=== PATIENT | female | born 1965 ===

== ENCOUNTER 2025-06-10 08:57 | Emergency (ER) | payer MEDICAID, SELFPAY ==
[2025-06-10 09:01] VITALS: BP 161/77; PULSE 69; RESP 18; TEMP 36.3; O2SAT 97; BMI 40.9
--- NOTE | 2025-06-10 09:36 | ED_ITS ---
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 Patient states that she has had a growth on her back for quite a long time but over the last few days it has gotten bigger and painful. Patient states that it has been growing and won't open. Patient denies any dizziness, lightheadedness, abdominal pain, nausea, vomiting, fever, chills, blurry vision, double vision, loss of vision, chest pain, difficulty breathing, shortness of breath, back pain, night sweats, pain with urination, increased urinary frequency, increased urinary urgency, blood in her urine or stool, syncope or a near syncopal episode, recent trauma or falls, bowel incontinence, bladder incontinence, or any other complaints at this time. Relieving factors: none Exacerbating factors: none Associated symptoms: denies other symptoms Treatments prior to arrival: none Related Data Previous Rx's ?Medication ?Instructions ?Recorded cephalexin 500 mg capsule 500 mg PO Q6H 7 days #28 cap s 06/10/25 Allergies Allergy/AdvReac Type Severity Reaction Status Date / Time No Known Allergies Allergy Verified 06/10/25 09:09 Review of Systems 2 Constitutional: Constitutional: Reports no additional constitutional complaints, Denies chills, Denies fever(s) and Denies night sweats Eyes: Eyes: Reports no additional eye complaints, Denies blurry vision, Denies change in vision, Denies diplopia, Denies eye discharge, Denies loss of vision and Denies eye pain ENT: Denies dizziness Cardiovascular: Cardiovascular: Reports no additional cardiovascular complaints, Denies chest pain, Denies lightheadedness, Denies Loss of Consciousness and Denies dyspnea Respiratory: Respiratory: Reports no additional respiratory complaints and Denies dyspnea Gastrointestinal: Gastrointestinal: Reports no additional gastrointestinal complaints, Denies abdominal pain, Denies melena, Denies hematochezia, Denies change in bowel habits and Denies change in stool character Genitourinary: Genitourinary: Denies hematuria, Denies urinary frequency, Denies dysuria, Denies urinary incontinence, Denies urinary hesitancy and Denies urinary urgency Musculoskeletal: Musculoskeletal: Reports no additional musculoskeletal complaints, Denies numbness and Denies tingling Comments: right sided back mass Neurologic: Denies dizziness, Denies loss of vision, Denies numbness and Denies tingling Psychiatric: Psychiatric: Reports no additional psychiatric complaints Endocrine: Endocrine: Reports no additional endocrine complaints Hematologic/Lymphatic: Hematologic/Lymphatic: Reports no additional hematologic/lymphatic complaints Allergic/Immunologic: Allergic/Immunologic: Reports no additional allergic/immunologic complaints PMFSH Past Medical History Attestation statement: The following information was validated with the patient. Source: old records reviewed and nursing notes reviewed Social History Social History Advance Directives: No Advance Directives Information Provided: Yes Do you have a plan to hurt others: No Plan Physical Exam ED Vital Signs: Vital Signs - 24 hr 06/10/25 09:01 06/10/25 10:30 Temperature 97.3 F 97.3 F Pulse Rate 69 69 Respiratory Rate 18 18 Blood Pressure 161/77 H 161/77 H Pulse Oximetry 97 97 Oxygen Delivery Method Room Air Room Air BMI result Body Mass Index 40.9 Const General: cooperative, no acute distress, alert and awake Nutritional Appearance: well nourished Orientation/consciousness: patient oriented x3 HENMT Head: Yes normal to inspection and Yes atraumatic Ears: hearing grossly normal bilaterally and external ears normal General nose exam: Normal external nose present, no nasal discharge noted and no epistaxis Face and sinus: Yes normal facial exam, No abrasion and No laceration Mouth: Normal oral and palatal mucosa present, no drooling and no muffled voice Eyes General: appearance normal, both eyes and all related structures Periorbital: periorbital findings normal Eyelids: Yes eyelids normal Conjunctivae: conjunctivae normal Pupils: Equal, round and reactive pupils present EOM: EOMs intact bilaterally Neck Neck: Yes normal visual inspection, Yes full ROM and Yes no lymphadenopathy Resp Effort & Inspection: normal respiratory effort and able to speak in complete sentences Back/Spine/Pelvis Other: Neuro General: patient oriented x3, moves all extremities and CN's II-XI intact bilaterally Cranial nerves: Yes Equal, round and reactive pupils present Cognition (Neuro): normal cognition Extrem General: Yes normal to inspection, Yes full ROM and Yes capillary refill normal Psych Appearance: grossly normal Mental Status: mental status grossly normal Affect: normal affect Attitude: cooperative Thought process: Normal thought process present Thought content: Normal thought content present Insight: Good insight present (Psych) Procedures Abscess I/D Site: back Side (if applicable): right Local Anesthetic: lidocaine 1% Amount of anesthesia used (mL): 5 Technique: incised with blade Amount of fluid expressed (mL): 5 Sent for culture/gram staining?: No Irrigation: No Packing used?: none Medical Decision Making Medical Decision Making MDM Narrative: Patient is a 60 year old assigned female at with no reported medical history presenting to the emergency department today with a right sided back mass. Patient's physical exam showed a small lump on the upper right back - most consistent with a sebaceous cyst. I explained my physical exam findings to the patient. I answered all questions asked by the patient. I offered the patient the option of leaving it as it is, covering with PO ABX, and having her follow up with a general surgeon for full excision however, she requested - adamantly, for me to open it here in the ED. I explained to the patient that even after I open it and remove some of the cyst debris, she will still need to see a general surgeon to have the rest of the cystic sac removed. Patient stated she understood and would prefer me to open it. Area was numbed and incised with a size 11 scalpel without incident. Approximately 5ml of cystic debris was excised. Wound did not need packing. Wound was then covered with gauze and 3 inch tape. I stressed the importance of the patient taking her medication as directed (either prescribed or as the over the counter packaging recommends). I stressed the importance of the patient following up with her primary care provider and a general surgeon to complete the excision of her cyst. I stressed the importance of the patient returning to the emergency department immediately if her symptoms were to worsen or if she were to develop any dizziness, shortness of breath, difficulty breathing, chest pain, blurry vision, loss of vision, nausea, vomiting, abdominal pain, fever, chills, back pain, or any other complaints. Patient verbalized agreement and understanding with this treatment plan and discharge. Differential Diagnosis Differential Diagnoses: The differential diagnosis associated with the presentation includes Cyst Sebaceous cyst Abscess Admission/Observation Consideration of admission/observation: Escalation of care including admission/observation considered Patient would have been admitted to the hospital had her clinical presentation warranted hospital admission. Prescription Management I considered prescription management with: Antibiotic (patient prescribed an antibiotic for possible overlying cellulitis given her examination findings) Discharge Plan Discharge Clinical Impression: Sebaceous cyst Patient Disposition: Home, Self-Care Instructions: Cyst (ED) Additional Instructions: Your cyst was incised and drained, per your request. All that was removed was cyst debris but given the overlying erythema and warmth, I am prescribing and antibiotic you should take. As discussed, you MUST see a general surgeon to have the rest of this cyst removed. Do NOT get the affected area wet. Le hicieron leidy incisi?n y le drenan el quiste, seg?n crystal solicitud. Solo se extrajeron los restos del quiste, savi dado el eritema y la temperatura que lo recubren, le recetar? un antibi?margarette. Melinda ya se mencion?, DEBE consultar con un cirujano general para que le extirpen el celio del quiste. NO moje la jazmine afectada. Follow up with your primary care provider. Return to the emergency department immediately if your symptoms worsen or if you develop any dizziness, shortness of breath, difficulty breathing, chest pain, blurry vision, loss of vision, nausea, vomiting, abdominal pain, fever, chills, back pain, or any other complaints. Tisha?seguimiento?con crystal m?dico de atenci?n primaria. Acuda inmediatamente al servicio de urgencias si joanne s?ntomas empeoran o si presenta falta de aliento, dificultad para respirar, dolor tor?cico, mareos, aturdimiento, dolor de espalda, dolor abdominal, fiebre, escalofr?os o cualquier otro s?ntoma. If you do not have a primary care provider - call any of the below numbers to establish and follow up with a primary care provider. Si no tiene un proveedor de atenci?n primaria, llame a cualquiera de los n?meros que aparecen a continuaci?n para establecer y hacer seguimiento con un proveedor de atenci?n primaria. [facility] ([place]) [phone] [place] [address], [address] [facility] ([address]) [phone] [place] [address], [address] [facility], [address] [facility] ([address]) [phone] [place] [address], [address] [facility], [address] [facility] ([place]) [phone] [place] [address], [address] [facility], [address] [facility] Medicine [phone] [address] [facility], [address] Please see the information below about our Patient Portal. If you are not yet enrolled in the [facility] Patient Portal, you will receive an enrollment email invitation following your visit to any [facility] setting. You may also self-enroll in the Patient Portal by visiting our website: [email or web address] The following information is required to access the Patient Portal: - Your [facility] Medical Record Number - Your personal home email address (must match what is in your electronic medical record, Registration staff can assist with this) - Name - Date of Capabilities of the Patient Portal: - Message some providers - View upcoming appointments - Access your health summary, medical history, and visit history - View current conditions and allergies - View procedure and lab results - View your medications, including guidelines, side effects, and precautions - Complete pre-appointment questionnaires requested by your provider - Ready summary reports of your office visits and procedures To access the Patient Portal Mobile [place], follow these directions: - Search [employer] in the [place] Store or [employer] Store - Download the [place] - Search for [facility] - Enter your login/password Portal del paciente Si usted no esta inscrito en el portal de pacientes de [facility] y [facility], recibira leidy invitacion de inscripcion despues de crystal visita al [facility] o al [facility] via correo electronico. Tambien puede inscribirse voluntariamente en el portal de pacientes visitando nuestra pagina web: [email or web address] La siguiente informacion sera requerida para acceder al portal: - Crystal otis de historia medica de [facility] - Crystal direccion de correo electronico personal - Nombre - Fecha de nacimiento Capacidades: Las siguientes capacidades estan disponibles en el portal de pacientes: - Enviar mensajes a algunos doctores - Verificar proximas citas - Acceso a crystal historial de timothy, registro medico e historial de visitas - Lakisha las condiciones actuales y alergias lakisha procedimientos y resultados del laboratorio - Lakisha joanne medicamentos, incluyendo las pautas - Efectos secundarios y precauciones - Completar o llenar formularios / cuestionarios de - Citas solicitadas por crystal doctor - Leer los resumenes de reportes medicos de joanne visitas y procedimientos [place] acceder a la aplicacion movil: - Busque [employer] en la [place] Store o [employer] Store - Descargue la aplicacion - Busque [facility] - Ingrese crystal nombre de usuario / Contrasena Prescriptions: New cephalexin 500 mg capsule 500 mg PO Q6H 7 Days Qty: 28 0RF Referrals: [facility] General Surgeons [Provider Group, General Surgery] Stand Alone Forms: Work/School Release Interventions: ED Discharge Assessment Last Done: 06/10/25 10:30 Discharge Date/Time: 06/10/25 10:30 Print Language: Guamanian
--- OUTSIDE RECORDS SUMMARY | 2025-06-10 10:13 | XMS_ITS | Clinical Summary ---
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 06/24/2024 Dental caries 06/24/2024 Periodontal disease 06/24/2024 Dental plaque 06/24/2024 History of root canal treatment 05/01/2024 Fracture of crown and root o f immature permanent tooth after root canal treatment 05/01/2024 Social History Tobacco Use Types Packs/Day Years Used Date Smoking Tobacco: Never Smokeless Tobacco: Never Tobacco Cessation:Counseling Given: Not Answered Alcohol Use Standard Drinks/Week Comments Defer 0 (1 standard drink = 0.6 oz pur e alcohol) Comments Unknown Sex and Gender Information Value Date Recorded Sex Assigned at Female 05/01/2024 9:31 AM EDT Legal Sex Female 9:31 AM EDT Gender Identity Female 05/01/2024 9:31 AM EDT Sexual Orientation Straight 05/01/2024 9: 31 AM EDT Last Filed Vital Signs Vital Sign Reading Time Taken Comments Blood Pressure 132/80 10/02/2024 8:16 AM EST Pulse - - Temperature - - Respiratory Rate - - Oxygen Saturation - - Inhaled Oxygen Concentration - - Weight - - Height - - Body Mass Index - - Plan of Treatment Health Maintenance Due Date Last Done Comments CT Colonography 1964 Colonoscopy 1964 Colorectal Cancer Screening 1964 Depression Screening 1964 FIT DNA/Cologuard 1964 FIT 1964 FOBT 1964 HIV Screening 1964 SDOH Screening 1964 Sigmoidoscopy 1964 Disability Screening 1964 Alcohol/Substance Use Screening 1976 Hepatitis C Screening 02/17/1982 DTaP/Tdap/Td Vaccines (1 - Tdap) 02/17/1983 Pap Smear 02/17/1985 Cervical Cancer Screening 02/17/1994 HPV/Cotest 02/17/1994 Mammogram 2004 Pneumococcal Vaccine: 50+ Ye ars (1 of 1 - PCV) 02/17/2014 Zoster Vaccines (1 of 2) 02/17/2014 COVID-19 Vaccine (1 - 2023-2 5 season) 2024 Dental Oral Exam 12/26/2024 06/24/2024 Dental Prophylaxis 04/02/2025 10/02/2024 Dental X-Ray: Bitewings 06/25/2025 06/24/2024 Influenza Vaccine (#1) 2025 Tobacco Screening 10/02/2025 10/02/2024 Dental X-Ray: Full Mouth 06/25/2027 06/24/2024 RSV Patients and Pa tients Aged 60 years or older (1 - 1-dose 75+ series) 02/17/2039 HIB Vaccines Aged Out No longer eligi ble based on patient's age to complete this topic HPV Vaccines Aged Out No longer eligi ble based on patient's age to complete this topic Hepatitis A Vaccines Aged Out No long er eligible based on patient's age to complete this topic Hepatitis B Vaccines Aged Out No long er eligible based on patient's age to complete this topic IPV Vaccines Aged Out No longer eligi ble based on patient's age to complete this topic Meningococcal B Vaccine Aged Out No l onger eligible based on patient's age to complete this topic Meningococcal Vaccine Aged Out No perico murray eligible based on patient's age to complete this topic RSV under 20 months Aged Out No longe r eligible based on patient's age to complete this topic Rotavirus Vaccines Aged Out No longer eligible based on patient's age to complete this topic Procedures Procedure Name Priority Date/Time Associated Diagnosis Comments PROPHYLAXIS - ADULT Routine 10/02/2024 8 :00 AM EST Dental plaque Periodontal disease INTRAORAL - COMPLETE SERIES OF RADIOGRAPHIC IMAGES Routine 06/24/2024 8:00 AM EDT COMPREHENSIVE ORAL EVALUATION - NEW OR ESTABLISHED PATIENT Routine 06/24/2024 8:00 AM EDT from Last 3 Months or Most Recently Relevant to Health Maintenance Insurance [employer] PARTIAL DENTAL - N PARTIAL (MEDICAID)
[2025-06-10 10:30] VITALS: BP 161/77; PULSE 69; RESP 18; TEMP 36.3; O2SAT 97
== END 2025-06-10 10:30 | disposition home or self-care (01) ==
PROVIDERS: Emergency Provider Emergency Medicine
DX: L02.212 Cutaneous abscess of back [any part, except buttock and flank] (principal)
CPT/HCPCS: 10060; 99283; 99284